=== PATIENT | female | born 1985 | race Caucasian/White ===

== ENCOUNTER 2017-08-24 17:47 | Emergency (ER) | payer MEDICARE, MEDICAID, SELFPAY ==
[2017-08-24 17:49] VITALS: BP 137/81; PULSE 123; RESP 16; TEMP 37.2; O2SAT 100; BMI 28.3
--- NOTE | 2017-08-24 18:22 | ED.VISSUMM ---
- ER Visit Summary Date of Service: 08/24/17 Chief Complaint: Suicidal gesture History of Present Illness: The patient is a 32 F Zentz to the emergency department after suicidal gesture. Patient has an underlying history of depression. She states that today, she took a butter knife and try to cut her wrists. She states that she just misses her mother and her son. The patient does have a history of psychotic behavior in the past. She has been admitted for suicidal gesture in the past 2. She denies any alcohol or drug use. She denies any fevers or chills. History is gathered from use of a senior graphic designer. Physical Examination: Vital signs reviewed General: Well-nourished, well-developed Head: Normocephalic, atraumatic Eyes: Pupils equal and reactive, extraocular muscles intact Neck, supple, no lymphadenopathy Heart: Regular rate and rhythm Respiratory: No distress, clear bilaterally Abdomen: Soft, nontender, nondistended, no peritoneal signs Back: Nontender Extremities: Nontender, superficial abrasions of the right forearm. No active bleeding. Skin: Normal color no rash Neuro: Alert and oriented, no focal or lateralizing deficits Test Results: [] Emergency Department Course and Treatment: The patient presents with superficial abrasions to her arm. They do not even violate the dermis. Screening labs were obtained were unremarkable. The patient was given IM Geodon with marked improvement of symptoms. The patient is well-known to the counseling service. She was seen and evaluated by crisis. After long discussion, the patient did feel safe with plan for discharge. She did contract for safety. The patient is very up front of her symptoms change in any way, she will return to the emergency department. She will be discharged home. Treatment Plan: [] Disposition: Discharge Impression: 1. Depression This note was generated with [employer] dictation software. It may contain incorrect words, spelling, and punctuation that were not noted in review of the chart prior to signing ED Disposition - Plan for ED Patient: Disposition: Home or Assisted Living Chief Complaint: Suicidal Instructions: ED Depression Referrals: Counseling,Center [GROUP OF PHYSICIANS] -
--- NOTE | 2017-08-24 18:27 | ED.DCSUM_ITS ---
- ER Visit Summary Date of Service: 08/24/17 Chief Complaint: Suicidal gesture History of Present Illness: The patient is a 32 F Zentz to the emergency department after suicidal gesture. Patient has an underlying history of depression. She states that today, she took a butter knife and try to cut her wrists. She states that she just misses her mother and her son. The patient does have a history of psychotic behavior in the past. She has been admitted for suicidal gesture in the past 2. She denies any alcohol or drug use. She denies any fevers or chills. History is gathered from use of a surfboard designer. Physical Examination: Vital signs reviewed General: Well-nourished, well-developed Head: Normocephalic, atraumatic Eyes: Pupils equal and reactive, extraocular muscles intact Neck, supple, no lymphadenopathy Heart: Regular rate and rhythm Respiratory: No distress, clear bilaterally Abdomen: Soft, nontender, nondistended, no peritoneal signs Back: Nontender Extremities: Nontender, superficial abrasions of the right forearm. No active bleeding. Skin: Normal color no rash Neuro: Alert and oriented, no focal or lateralizing deficits Test Results: [] Emergency Department Course and Treatment: The patient presents with superficial abrasions to her arm. They do not even violate the dermis. Screening labs were obtained were unremarkable. The patient was given IM Geodon with marked improvement of symptoms. The patient is well-known to the counseling service. She was seen and evaluated by crisis. After long discussion, the patient did feel safe with plan for discharge. She did contract for safety. The patient is very up front of her symptoms change in any way, she will return to the emergency department. She will be discharged home. Treatment Plan: [] Disposition: Discharge Impression: 1. Depression This note was generated with [employer] dictation software. It may contain incorrect words, spelling, and punctuation that were not noted in review of the chart prior to signing ED Disposition - Plan for ED Patient: Disposition: Home or Assisted Living Chief Complaint: Suicidal Instructions: ED Depression Referrals: Counseling,Center [GROUP OF PHYSICIANS] -
[2017-08-24 18:59] LABS: Absolute Lymphocyte Count 2.65 X10^3/ul (0.83-4.51); Absolute Neutrophil Count 14.3 X10^3/uL (2.0-7.7); Basophil# 0.03 X10^3/uL; Basophil% 0.2 % (0-1); Eosinophil# 0.03 X10^3/uL; Eosinophils% 0.2 % (0-5); Hematocrit 38.6 % (37-47); Hemoglobin 12.3 g/dl (12.0-15.0); Lymphocyte # 2.65 X10^3/ul (4.0); Lymphocyte % 14.8 % (19-41); Mean Corp Hgb Conc 31.9 g/gl (32-36); Mean Corpuscular Hgb 25.8 pg (27.0-32.0); Mean Corpuscular Volume 81.1 fL (81-99); Mean Platelet Vol. 9.4 fl (6.2-12.0); Monocyte# 0.89 X10^3/uL; Neutrophil # 14.25 X10^3/uL (2.7-7.7); Neutrophil % 79.5 % (47-70); Platelet Count 300 K/mm3 (150-450); RBC Distribution Width CV 15.6 % (11.6-14.6); RBC Distribution Width SD 45.8 fl (35.1-43.9); Red Blood Count 4.76 M/mm3 (4.2-5.4); White Blood Count 17.9 K/mm3 (4.4-11.0)
[2017-08-24 19:01] LABS: Anion Gap 9 (5-15); BUN 13 mg/dL (7-18); Chloride 106 mmol/L (98-107); Creatinine, Serum 0.93 mg/dL (0.55-1.02); EST Glomerular Filtration Rate 74 mL/min (>60); Est Glom Filt Rate - Afr Amer 89 mL/min (>60); Estimated Creatinine Clearance 64.93 ml/min; Glucose 108 mg/dL (74-106); POSITIVE COUNT NO; POSITIVE DIFFERENTIAL NO; POSITIVE MORPHOLOGY NO; Potassium 3.5 mmol/L (3.5-5.1); Sodium Level 138 mmol/L (136-145)
[2017-08-24] MEDS: Ziprasidone IM 20 MG/ML VIAL 10 MG IM (19:05)
[2017-08-24 19:11] VITALS: BP 132/75; PULSE 95; RESP 14; O2SAT 99
[2017-08-24 19:17] LABS: Alcohol, Blood (Medical)-Serum < 3.0 mg/dL; Amphetamine Urine VISTA NEGATIVE (<1000 ng/mL); Barbiturate Urine VISTA NEGATIVE (< 200 ng/mL); Benzodiazepine Urine VISTA NEGATIVE (< 200 ng/mL); Cocaine Urine VISTA NEGATIVE (< 300 ng/mL); Ecstacy Urine VISTA NEGATIVE (< 500 ng/mL); Methadone Urine VISTA NEGATIVE (< 300 ng/mL); PCP Urine VISTA NEGATIVE (< 25 ng/mL); THC Urine VISTA NEGATIVE (< 50 ng/mL); Vista UDS pH Range 5
[2017-08-24 19:21] LABS: Pregnancy, Serum, hCG Quali. NEGATIVE Negative (0-9 Nonpreg)
[2017-08-24 20:06] VITALS: BP 144/85; PULSE 89; RESP 14; O2SAT 98
--- NOTE | 2017-08-24 20:52 | NURSING ---
CALLEDCRISIS TO SEE THIS PT, JEFFERSON IS PERCUSSION INSTRUMENT TUNER
[2017-08-24] MEDS: RisperiDONE 1 MG Tablet 3 MG PO (21:05)
[2017-08-24 21:06] VITALS: BP 137/80; PULSE 85; RESP 14; O2SAT 99
--- NOTE | 2017-08-24 21:33 | NURSING ---
CRISIS ON SITE
[2017-08-24 22:58] VITALS: BP 132/70; PULSE 75; RESP 14; O2SAT 99
== END 2017-08-24 23:00 | disposition home or self-care (01) ==
PROVIDERS: Emergency Provider Emergency Medicine; Family Provider Family Medicine; PCP Family Medicine
DX: F32.9 Major depressive disorder, single episode, unspecified (principal); S50.811A Abrasion of right forearm, initial encounter; X78.1XXA Intentional self-harm by knife, initial encounter; Y93.9 Activity, unspecified; Y92.9 Unspecified place or not applicable; Y99.9 Unspecified external cause status; Z79.899 Other long term (current) drug therapy
CPT/HCPCS: 80048; 80307; 80320; 84703; 85025; 96372; 99283; G0480; J3486

== ENCOUNTER 2017-08-26 11:37 | Emergency (ER) | payer MEDICARE, MEDICAID, SELFPAY ==
[2017-08-26 11:38] VITALS: BP 121/40; PULSE 96; RESP 18; TEMP 36.6; O2SAT 96; BMI 28.3
--- NOTE | 2017-08-26 11:41 | ED.RN ---
CALLING FOR LEDGE MAN
--- NOTE | 2017-08-26 12:09 | ED.RN ---
PER DR. SNYDER, NO TESTS AT THIS TIME, PT IS TO REMAIN CLOTHED. DR. SNYDER IS WAITING ON THE COUNSELING CENTER TO EVALUATE. DR. SNYDER DOES NOT FEEL THE PT NEEDS TO BE IN THE ED.
--- NOTE | 2017-08-26 12:45 | ED.RN ---
PER PT REQUEST, ATTEMPTING CALL FATHER, NO ANSWER, NO MESSAGE LEFT. PT IS TEARFUL. THIS NURSE ATTEMPTED TO PROVIDE COMFORT, PT STATES THAT SHE IS SAD AND CONTINUES TO CRY.
--- NOTE | 2017-08-26 12:47 | ED.RN ---
2ND ATTEMPT TO CALL FATHER, STILL NO ANSWER.
--- NOTE | 2017-08-26 12:56 | ED.RN ---
PT REQUESTED THAT I CALL CHAD HER ROOM MATE. THE NUMBER SHE GAVE ME [phone] IS A BUSINESS.
--- NOTE | 2017-08-26 13:07 | ED.RN ---
THIS RN ATTEMPT TO COMFORT PT AGAIN. ALSO ATTEMPTED TO GET A CORRECT PHONE NUMBER FOR HER ROOM MATE BUT UNSUCCESSFUL AT THIS TIME.
--- NOTE | 2017-08-26 13:09 | ED.RN ---
MD AWARE THAT PT IS EMOTIONAL. HEDIS MANAGER ATTEMPTING TO CALL COUNSELING CENTER AGAIN.
[2017-08-26] MEDS: LORazepam 1 MG Tablet PO (13:27)
--- NOTE | 2017-08-26 13:50 | ED.RN ---
pt requests to this rn for the third time thaqt she wants to talk to someone from the counselling center. dr friedman aware
[2017-08-26 14:00] VITALS: RESP 16
--- NOTE | 2017-08-26 14:17 | ED.RN ---
pt ambulates to restroom.
--- NOTE | 2017-08-26 14:26 | ED.RN ---
CONTINUE TO WAIT FOR COUNSELING CENTER.
--- NOTE | 2017-08-26 14:32 | ED.RN ---
CONTACTED MERCEDES STAFFORD THROUGH VIDEO INTERRUPTER, . DENIAHARMEET DOES NOT WANT TO COME TO THE ED AT THIS TIME, HE WANTS TO HEAR FROM THE COUNSELOR, THEN HE WILL DECIDE IF HE WILL COME IN TO ED.
--- NOTE | 2017-08-26 15:25 | ED.RN ---
WEB MARKETING ANALYST AT BEDSIDE. PT TOLD WEB MARKETING ANALYST THAT SHE FEELS IGNORED, THAT SHE DOES NOT NO WHY THE COUNSELOR HAS SEEN HER YET. APOLOGIZED TO PT. COUNSELOR HAS NOT BEEN TO SEE PT YET.
--- NOTE | 2017-08-26 15:52 | ED.RN ---
3D ARTIST REMAINS AT BEDSIDE. STILL NO COUNSELING CENTER.
[2017-08-26 16:00] VITALS: BP 119/79; PULSE 82; RESP 16; O2SAT 93
--- NOTE | 2017-08-26 16:15 | ED.RN ---
COUNSELOR IN ED OFFICE. COUNSELOR HAS YET TO SEE THE PT.
--- NOTE | 2017-08-26 16:21 | ED.VISSUMM ---
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 She wrote she is very frustrated. She is presently living with her ex-boyfriend and his new girlfriend. She has not dated caress her ex-boyfriend for 1 year. Apparently the girlfriend is new. She states she is upset because Sacha broke her cell phone and she is not able to communicate. She did inform the [place] police chief who pink slipped her that she would harm herself. She would stab herself with a fork or knife. She has superficial wounds that are old from 1 week ago. She would like to receive her Risperdal dose prior to August 31. I was informed by the charge nurse that the hospital does not carry injectable Risperdal. She presently has no homicidal or suicidal thoughts. Based on review of prior records she has abnormal stress response and stress disorder. Based on prior notes there is a concern she may have a borderline personality disorder. Patient is demanding to speak with someone from the counseling center. She was administered Ativan 2 relax her. Case was discussed with the intake person for crisis counseling center and on the acute side. I was informed that I know openings for an acute office visit. And that I would not be able to speak with Dr. Yo. I would have to speak with Mr. Raffi Yin. I also was told that Michelle from the cancer center is present seen a person on [facility] and would see her once she has completed her interview and interaction with that patient. Physical Examination: Patient is deaf mute. Communication was through written questions any answers. Based on my interview patient is frustrated secondary to ex-boyfriend. This is exacerbating her stress disorder. Vital signs are normal. HEENT exam is unremarkable. Insert cardiac pulmonary exam. Abdomen soft nontender. Neuro exam is nonfocal. Test Results: Test were obtained since it is in my professional medical opinion patient does not require emergent inpatient intervention or care. Emergency Department Course and Treatment: Lorazepam for her anxiety until she is seen by Michelle from the counseling center. Treatment Plan: Francisco evaluation by Michelle the shut off worker from the counseling center. I was informed by Michelle that the patient now is in agreement is not in her best interest to live with her ex-boyfriend and his new girlfriend. She will contact her binder caser to find a new residence. Disposition: Pending interview by Michelle Impression: 1. Stress disorder with poor coping mechanisms 2. Voiced self-harm 3. Manipulative behavior This note was generated with [employer] software. It may contain incorrect words, spelling, and punctuation that were not noted in review of the chart prior to signing ED Disposition - Plan for ED Patient: Disposition: Home or Assisted Living Chief Complaint: Suicidal Instructions: ED Stress React Referrals: Ernie Florian MD [Primary Care Provider] - Counseling,Center [GROUP OF PHYSICIANS] - Keep Rivas appointment
--- NOTE | 2017-08-26 16:30 | ED.DCSUM_ITS ---
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 She wrote she is very frustrated. She is presently living with her ex-boyfriend and his new girlfriend. She has not dated caress her ex-boyfriend for 1 year. Apparently the girlfriend is new. She states she is upset because Sacha broke her cell phone and she is not able to communicate. She did inform the [place] police surgeon who pink slipped her that she would harm herself. She would stab herself with a fork or knife. She has superficial wounds that are old from 1 week ago. She would like to receive her Risperdal dose prior to August 31. I was informed by the charge nurse that the hospital does not carry injectable Risperdal. She presently has no homicidal or suicidal thoughts. Based on review of prior records she has abnormal stress response and stress disorder. Based on prior notes there is a concern she may have a borderline personality disorder. Patient is demanding to speak with someone from the counseling center. She was administered Ativan 2 relax her. Case was discussed with the intake person for crisis counseling center and on the acute side. I was informed that I know openings for an acute office visit. And that I would not be able to speak with Dr. Yo. I would have to speak with Mr. Raffi Yin. I also was told that Michelle from the cancer center is present seen a person on [facility] and would see her once she has completed her interview and interaction with that patient. Physical Examination: Patient is deaf mute. Communication was through written questions any answers. Based on my interview patient is frustrated secondary to ex-boyfriend. This is exacerbating her stress disorder. Vital signs are normal. HEENT exam is unremarkable. Insert cardiac pulmonary exam. Abdomen soft nontender. Neuro exam is nonfocal. Test Results: Test were obtained since it is in my professional medical opinion patient does not require emergent inpatient intervention or care. Emergency Department Course and Treatment: Lorazepam for her anxiety until she is seen by Michelle from the counseling center. Treatment Plan: Francisco evaluation by Michelle the circulation worker from the counseling center. I was informed by Michelle that the patient now is in agreement is not in her best interest to live with her ex-boyfriend and his new girlfriend. She will contact her patient case coordinator to find a new residence. Disposition: Pending interview by Michelle Impression: 1. Stress disorder with poor coping mechanisms 2. Voiced self-harm 3. Manipulative behavior This note was generated with [employer] software. It may contain incorrect words, spelling, and punctuation that were not noted in review of the chart prior to signing ED Disposition - Plan for ED Patient: Disposition: Home or Assisted Living Chief Complaint: Suicidal Instructions: ED Stress React Referrals: Ernie Florian MD [Primary Care Provider] - Counseling,Center [GROUP OF PHYSICIANS] - Keep Rivas appointment
--- NOTE | 2017-08-26 16:32 | ED.VISSUMM ---
- ER Visit Summary Date of Service: 08/26/17 Chief Complaint: [] History of Present Illness: The patient is a 32 F [] Physical Examination: [] Test Results: [] Emergency Department Course and Treatment: [] Treatment Plan: [] Disposition: [] Impression: [] This note was generated with [employer] dictation software. It may contain incorrect words, spelling, and punctuation that were not noted in review of the chart prior to signing ED Disposition - Plan for ED Patient: Disposition: Home or Assisted Living Chief Complaint: Suicidal Instructions: ED Stress React Referrals: Counseling,Center [GROUP OF PHYSICIANS] - Keep Rivas appointment Ernie Florian MD [Primary Care Provider] -
--- NOTE | 2017-08-26 16:40 | ED.RN ---
PER PT REQUEST, ATTEMPTING TO CALL DAD TO SEE IF SHE COULD STAY THERE. HER DAD SAID NO.
--- NOTE | 2017-08-26 16:48 | ED.RN ---
SEYMOUR THE COUNSELOR IS GIVING THE PT A RIDE HOME.
[2017-08-26 16:49] VITALS: BP 119/79; PULSE 83; RESP 14; O2SAT 99
== END 2017-08-26 16:51 | disposition home or self-care (01) ==
PROVIDERS: Emergency Provider Emergency Medicine; Family Provider Family Medicine; PCP Family Medicine
DX: F43.9 Reaction to severe stress, unspecified (principal); H91.3 Deaf nonspeaking, not elsewhere classified; R45.851 Suicidal ideations
CPT/HCPCS: 99282

== ENCOUNTER 2017-08-27 17:14 | Emergency (ER) | payer MEDICARE, MEDICAID, SELFPAY ==
[2017-08-27 17:16] VITALS: BP 140/87; PULSE 112; RESP 16; TEMP 36.8; O2SAT 98; BMI 33.0
--- NOTE | 2017-08-27 18:17 | ED.DCSUM_ITS ---
- ER Visit Summary Date of Service: 08/27/17 Chief Complaint: Suicidal ideation History of Present Illness: The patient is a 32 F presenting with suicidal ideation. Patient is deaf and history is limited. She is able to communicate by writing. She states that she cut her right forearm today. She states she did want to kill herself. She was seen in the ED yesterday and 3 days ago for similar complaints. She states her symptoms have worsened. She was pink slipped by police. Physical Examination: Vitals are stable. Patient is afebrile. Alert no acute distress. HEENT exam is unremarkable. Neck is supple. Lungs are clear and equal bilaterally. Heart is regular rate and rhythm. Abdomen is soft nontender nondistended. No rebound or guarding. Extremities superficial abrasion right forearm Skin is warm and dry. No focal neurologic deficit. Depressed with suicidal ideation Remainder of exam is unremarkable. Emergency Department Course and Treatment: CBC shows white count of 14.7. Chemistries unremarkable. HCG negative. Alcohol and tox are negative. Discussed with the counseling center for evaluation. Disposition: Per counseling center Impression: Suicidal ideation This note was generated with [employer] dictation software. It may contain incorrect words, spelling, and punctuation that were not noted in review of the chart prior to signing ED Disposition - Plan for ED Patient: Chief Complaint: Suicidal Referrals: Ernie Florian MD [Primary Care Provider] -
[2017-08-27 18:24] VITALS: RESP 14
[2017-08-27 18:34] LABS: Amphetamine Urine VISTA NEGATIVE (<1000 ng/mL); Barbiturate Urine VISTA NEGATIVE (< 200 ng/mL); Benzodiazepine Urine VISTA NEGATIVE (< 200 ng/mL); Cocaine Urine VISTA NEGATIVE (< 300 ng/mL); Ecstacy Urine VISTA NEGATIVE (< 500 ng/mL); Methadone Urine VISTA NEGATIVE (< 300 ng/mL); PCP Urine VISTA NEGATIVE (< 25 ng/mL); THC Urine VISTA NEGATIVE (< 50 ng/mL); Vista UDS pH Range 6
[2017-08-27] MEDS: LORazepam 0.5 MG Tablet PO (18:48)
[2017-08-27 19:01] LABS: Absolute Lymphocyte Count 3.29 X10^3/ul (0.83-4.51); Absolute Neutrophil Count 10.3 X10^3/uL (2.0-7.7); Basophil# 0.04 X10^3/uL; Basophil% 0.3 % (0-1); Eosinophil# 0.05 X10^3/uL; Eosinophils% 0.3 % (0-5); Hematocrit 36.7 % (37-47); Hemoglobin 11.7 g/dl (12.0-15.0); Lymphocyte # 3.29 X10^3/ul (4.0); Lymphocyte % 22.4 % (19-41); Mean Corp Hgb Conc 31.9 g/gl (32-36); Mean Corpuscular Hgb 25.9 pg (27.0-32.0); Mean Corpuscular Volume 81.2 fL (81-99); Mean Platelet Vol. 9.3 fl (6.2-12.0); Monocyte# 0.95 X10^3/uL; Monocyte% 6.5 % (0-10); Neutrophil # 10.32 X10^3/uL (2.7-7.7); Neutrophil % 70.2 % (47-70); Platelet Count 337 K/mm3 (150-450); RBC Distribution Width CV 16.1 % (11.6-14.6); RBC Distribution Width SD 47.4 fl (35.1-43.9); Red Blood Count 4.52 M/mm3 (4.2-5.4); White Blood Count 14.7 K/mm3 (4.4-11.0)
[2017-08-27 19:06] LABS: POSITIVE COUNT NO; POSITIVE DIFFERENTIAL NO; POSITIVE MORPHOLOGY NO
[2017-08-27 19:15] LABS: Alcohol, Blood (Medical)-Serum < 3.0 mg/dL
[2017-08-27 19:16] LABS: Anion Gap 9 (5-15); BUN 16 mg/dL (7-18); BUN/Creat Ratio 18.9 RATIO (10-20); Calcium,Total 8.5 mg/dL (8.5-10.1); Chloride 106 mmol/L (98-107); Creatinine, Serum 0.85 mg/dL (0.55-1.02); EST Glomerular Filtration Rate 82 mL/min (>60); Est Glom Filt Rate - Afr Amer 99 mL/min (>60); Estimated Creatinine Clearance 71.04 ml/min; Glucose 100 mg/dL (74-106); Potassium 3.5 mmol/L (3.5-5.1); Sodium Level 139 mmol/L (136-145)
[2017-08-27 19:28] LABS: Pregnancy, Serum, hCG Quali. NEGATIVE Negative (0-9 Nonpreg)
[2017-08-27 20:02] VITALS: BP 118/79; PULSE 84; RESP 16; O2SAT 98
[2017-08-27] MEDS: Ondansetron ODT 4 MG Tablet PO (20:41)
--- NOTE | 2017-08-27 21:46 | ED.DEP ---
ED Disposition - Plan for ED Patient: Chief Complaint: Suicidal Instructions: ED Depression Referrals: Ernie Florian MD [Primary Care Provider] - Counseling,Center [GROUP OF PHYSICIANS] -
[2017-08-27] MEDS: RisperiDONE 1 MG Tablet 3 MG PO (22:30)
[2017-08-27 22:35] VITALS: BP 121/74; PULSE 79; RESP 18; O2SAT 99
[2017-08-27 23:01] VITALS: BP 124/78; PULSE 73; RESP 16; O2SAT 97
== END 2017-08-27 23:53 | disposition home or self-care (01) ==
LOC: ED 19:36
PROVIDERS: Emergency Provider Emergency Medicine; Family Provider Family Medicine; PCP Family Medicine
DX: R45.851 Suicidal ideations (principal); F32.9 Major depressive disorder, single episode, unspecified; H91.90 Unspecified hearing loss, unspecified ear
CPT/HCPCS: 36415; 80048; 80307; 80320; 84703; 85025; 99285; G0480